=== PATIENT | male | born 1980 ===

== ENCOUNTER 2016-09-20 18:21 | Inpatient (IN) | payer MEDICAID ==
--- NOTE | 2016-09-20 18:37 | ED PDOC ---
HPI: Psych/Substance Abuse Time Seen by Provider: 09/20/16 18:35 Chief Complaint (Nursing): Substance Abuse Chief Complaint (Provider): etoh, ? substance abuse History Per: Patient Past Medical History Vital Signs: Last Vital Signs Temp 97.8 F 09/20/16 18:26 Pulse 114 H 09/20/16 18:26 Resp 18 09/20/16 18:26 BP Pulse Ox 98 09/20/16 18:26 - Allergies Allergies/Adverse Reactions: Allergies Allergy/AdvReac Type Severity Reaction Status Date / Time Unobtainable Allergy Verified 09/20/16 18:24 - ECG O2 Sat by Pulse Oximetry: 98
[2016-09-20] MEDS ORDERED: Sodium Chloride 0.9% 1,000 ML IV STA (18:47)
--- NOTE | 2016-09-20 18:50 | ED PDOC ---
HPI: Psych/Substance Abuse Time Seen by Provider: 09/20/16 18:35 Chief Complaint (Nursing): Substance Abuse Chief Complaint (Provider): AMS ED Caveat: Intoxicated History Per: EMS, Family History/Exam Limitations: clinical condition, intoxication Onset/Duration Of Symptoms: Unknown Current Symptoms Are (Timing): Still Present Suicide/Self Injury Attempted (Context): Ingestion Modifying Factor(s): Alcohol Severity: Severe Associated Symptoms: Agitation Involuntary Hold By: Emergency Physician Additional Complaint(s): 36yo male arrives w EMS per report intoxicated and combative en-route. Mother later arrived states he fell 2x yesterday, has been drinking alcohol, she's unsure if he coningested any medications in attempt to overdose. He was seen at [place] [facility] last week back pain and found to have elevated LFTs?, per mother was discharged, history limited. In ED arrived awake but appearing intoxicated, no gross trauma, slurred speech and not able to provide further history. Home medications also brought to ED, include amytriptyline, duloxetine , vit B6, alprazolam. Past Medical History Reviewed: Historical Data, Nursing Documentation, Vital Signs, Unable To Obtain Vital Signs: Last Vital Signs Temp 97.8 F 09/20/16 18:26 Pulse 114 H 09/20/16 18:26 Resp 18 09/20/16 18:26 BP Pulse Ox 98 09/20/16 18:26 - Surgical History Other surgeries: unknown - Family History Family History: States: Unknown Family Hx - Living Arrangements Living Arrangements: With Family - Social History Current smoker - smoking cessation education provided: No Alcohol: > 2 Drinks/Day Drugs: Other (uknown) - Allergies Allergies/Adverse Reactions: Allergies Allergy/AdvReac Type Severity Reaction Status Date / Time Unobtainable Allergy Verified 09/20/16 18:24 Review of Systems Review Of Systems: ROS cannot be obtained secondary to pt's inabilty to answer questions. Physical Exam - Reviewed Nursing Documentation Reviewed: Yes Vital Signs Reviewed: Yes - Physical Exam Appears: Positive for: Non-toxic (+ AMS, slurred speech, no gross trauma) Head Exam: Positive for: ATRAUMATIC, NORMAL INSPECTION, NORMOCEPHALIC Skin: Positive for: Normal Color, Warm, DRY Eye Exam: Positive for: Normal appearance, EOMI, PERRL (3mm b/l sluggish) ENT: Positive for: Normal ENT Inspection Neck: Positive for: Normal, Painless ROM, Trachea Midline. Negative for: Pain On Movement Of Neck Cardiovascular/Chest: Positive for: Regular Rate, Rhythm Respiratory: Positive for: Normal Breath Sounds. Negative for: Respiratory Distress Pulses-Radial (L): 2+ Pulses-Radial (R): 2+ Gastrointestinal/Abdominal: Positive for: Bowel Sounds, Soft, Other (obese). Negative for: Tenderness Back: Positive for: Normal Inspection Extremity: Positive for: Normal ROM, Other (chronic appearing changes skin to hands). Negative for: Deformity Neurologic/Psych: Positive for: Alert, Other (moves all ext with equal tone, altered) - ECG O2 Sat by Pulse Oximetry: 98 Medical Decision Making Medical Decision Making: Workup initiated for AMS with potential for ingestion or head injury (fall yesterday per mother). Pt required restrains for relief of agitation and patient/staff safety on arrival. Disposition - Clinical Impression Clinical Impression: Altered mental status - Patient ED Disposition Is Patient to be Admitted: Transfer of Care - Disposition Disposition: Transfer of Care Disposition Time: 18:53 Condition: GUARDED Patient Signed Over To: Yariel Tinoco Handoff Comments: pending all workup and dispo - POA Present On Arrival: Falls Or Trauma
[2016-09-20 19:17] LABS: BASO # 0.1 K/uL (0.0-0.2); BASO % 0.9 % (0.0-2.0); EOS # 0.1 K/uL (0.0-0.7); EOS % 0.6 % (0.0-4.0); HEMATOCRIT 50.1 % (35.0-51.0); LYMPH # 4.4 K/uL (1.0-4.3); LYMPH % 39.7 % (20.0-40.0); MEAN CELL VOLUME 90.5 fl (80.0-94.0); MEAN CORPUSCULAR HEMOGLOBIN 30.7 pg (27.0-31.0); MONO # 0.8 K/uL (0.0-0.8); MONO % 7.1 % (0.0-10.0); NEUT # 5.8 K/uL (1.8-7.0); NEUT % 51.7 % (50.0-75.0); NRBC % 0.6 % (0.0-0.0); RED CELL DISTRIBUTION WIDTH 14.9 % (11.5-14.5); WHITE BLOOD COUNT 11.2 K/uL (4.8-10.8)
[2016-09-20 19:29] LABS: ALKALINE PHOSPHATASE 207 U/L (38-126); ALT/SGPT 140 U/L (21-72); AST/SGOT 235 U/L (17-59); BILIRUBIN,TOTAL 1.5 mg/dl (0.2-1.3); BLOOD UREA NITROGEN 5 mg/dl (9-20); CALCIUM 8.6 mg/dL (8.4-10.2); CARBON DIOXIDE 20 mmol/L (22-30); CHLORIDE 108 mmol/L (98-107); GFR AFRICAN-AMERICAN > 60; GLUCOSE,RANDOM 116 mg/dL (75-110); POTASSIUM 3.6 MMOL/L (3.6-5.0); SODIUM 155 mmol/l (132-148); TOTAL PROTEIN 9.1 G/DL (6.3-8.2)
--- NOTE | 2016-09-20 19:36 | ED PDOC ---
- Laboratory Results Result Diagrams: 09/20/16 18:50 09/20/16 18:50 - ECG O2 Sat by Pulse Oximetry: 98 Medical Decision Making Medical Decision Makin:00 Patient endorsed over to me by Forest Mclain III, DO, pending remainder of ED workup, reevaluation and final disposition. Patient will be placed within ED Observation secondary to his acutely intoxicated state. Pending clinical sobriety and results of ED workup. Patient s/o to Dr. Morales at 0700 pending sobriety and crisis eval. Scribe Attestation: Documented by Katina De La Paz, acting as a scribe for Yariel Tinoco MD. Provider Scribe Attestation: All medical record entries made by the Scribe were at my direction and personally dictated by me. I have reviewed the chart and agree that the record accurately reflects my personal performance of the history, physical exam, medical decision making, and the department course for this patient. I have also personally directed, reviewed, and agree with the discharge instructions and disposition. Disposition - Clinical Impression Clinical Impression: Alcoholic intoxication - POA Present On Arrival: None - Disposition Disposition: Transfer of Care Disposition Time: 21:06 Condition: GUARDED Patient Signed Over To: Karol Morales Handoff Comments: pending sobriety and crisis eval ED OBSERVATION Date of observation admission: 09/20/16 Time of observation admission: 19:00 - Observation admission statement Patient is being placed in observation because:: Secondary to acute alcohol intoxication. - Goals of Observation Goals of observation are:: Clinical sobriety, results of ED workup, reevaluation and final disposition. - Progress Note Progress Note: 09/20/16 21:08 Patient is resting comfortably in ED. No apparent distress, easily arousable.
[2016-09-20 19:41] LABS: ALCOHOL SERUM 479 mg/dl (0-10)
[2016-09-20 21:05] LABS: RBC URINE < 1 /hpf (0-3); URINE BILIRUBIN NEGATIVE (NEGATIVE); URINE BLOOD NEGATIVE (NEGATIVE); URINE COLOR YELLOW (YELLOW); URINE GLUCOSE (UA) NEG (Normal); URINE KETONE TRACE mg/dL (NEGATIVE); URINE LEUKOCYTE ESTERASE NEG Leu/uL (Negative); URINE PROTEIN 100 mg/dL (NEGATIVE); URINE UROBILINOGEN 0.2-1.0 mg/dL (0.2-1.0); WBC URINE < 1 /hpf (0-5)
--- NOTE | 2016-09-21 07:13 | ED PDOC ---
- Laboratory Results Result Diagrams: 09/22/16 07:29 09/22/16 07:29 - ECG O2 Sat by Pulse Oximetry: 98 Medical Decision Making Medical Decision Making: Time: 699 Patient signed out by Dr. Tinoco pending sobriety and crisis evaluation Time: 844 Patient possibly to be screen by [facility] [place] per industrial services worker Time: 1014 Patient to be admitted to [facility] for unspecified alcohol use disorder by Dr.Micelli Fitch Attestation: Documented by Venecia Figueroa acting as a scribe for Karol Morales MD MD Scribe Attestation: All medical record entries made by the Scribe were at my direction and personally dictated by me. I have reviewed the chart and agree that the record accurately reflects my personal performance of the history, physical exam, medical decision making, and the department course for this patient. I have also personally directed, reviewed, and agree with the discharge instructions and disposition. Disposition Counseled Patient/Family Regarding: Studies Performed, Diagnosis - Clinical Impression Clinical Impression: Alcohol intoxication - POA Present On Arrival: None - Disposition Disposition: Admitted as In-Patient Disposition Time: 10:00 Condition: STABLE
--- NOTE | 2016-09-21 09:17 | CT ---
PROCEDURE: CT HEAD WITHOUT CONTRAST. HISTORY: AMS COMPARISON: None available. TECHNIQUE: Axial computed tomography images were obtained through the head/brain without intravenous contrast. Radiation dose: Total exam DLP = 1473.60 mGy-cm. This CT exam was performed using one or more of the following dose reduction techniques: Automated exposure control, adjustment of the mA and/or kV according to patient size, and/or use of iterative reconstruction technique. FINDINGS: HEMORRHAGE: No intracranial hemorrhage. BRAIN: There is no mass, mass effect or abnormal extra-axial fluid collection. There is no territorial infarction. VENTRICLES: There is mild global parenchymal volume loss and proportionate enlargement of the ventricles and cortical sulci. CALVARIUM: The skull base and calvarium are normal. PARANASAL SINUSES: There is chronic left maxillary sinusitis. The remaining included paranasal sinuses are predominantly clear. MASTOID AIR CELLS: Predominantly clear. OTHER FINDINGS: None. IMPRESSION: No acute intracranial abnormality. Mild global parenchymal volume loss, advanced for the patient's age. Chronic left maxillary sinusitis. A preliminary report was provided by [employer].
[2016-09-21] MEDS ORDERED: DiphenhydrAMINE 50 mg/ml Inj IM PRN (13:19)
[2016-09-21] MEDS ORDERED: Alum-Mag Hydrox-Simethicone Susp (30 mL) PO PRN (13:19)
[2016-09-21] MEDS ORDERED: Magnesium Hydroxide Susp 30 ml UD PO PRN (13:19)
--- NOTE | 2016-09-21 18:30 | CARD ---
APPROVED REPORT EKG Measurement Heart [id number] <Conclusion> Sinus tachycardia T wave abnormality, consider inferior ischemia Abnormal ECG
--- NOTE | 2016-09-21 21:39 | PCM.PSYCH ---
Initial Psychiatric Evaluation - Initial Psychiatric Evaluation Chief Complaint (in patient's own words): came to emergency room i was found on floor i passed out Patient's Reaction to Hospitalization: verbally agreeable to remain Current Medications: Active Medications Generic Name Dose Route Start Last Admin Trade Name Freq PRN Reason Stop Dose Admin Acetaminophen 650 mg 09/21/16 13:19 Tylenol 325mg Tab PO Q4 PRN Pain, moderate (4-7) Al Hydrox/Mg Hydrox/Simethicone 30 ml 09/21/16 13:19 Maalox Plus 30 Ml PO Q4 PRN Dyspepsia Diphenhydramine HCl 50 mg 09/21/16 13:19 Benadryl PO Q6 PRN Extrapyramidal Symptoms Diphenhydramine HCl 50 mg 09/21/16 13:19 Benadryl IM Q6 PRN Extrapyramidal S/S Unable PO Folic Acid 1 mg 09/22/16 09:00 Folic Acid PO DAILY DIANA Gabapentin 600 mg 09/21/16 17:00 09/21/16 16:13 Neurontin PO 600 mg TID DIANA Administration Haloperidol 5 mg 09/21/16 13:19 Haldol PO Q4 PRN Agitation Haloperidol Lactate 5 mg 09/21/16 13:19 Haldol IM Q4 PRN Agitation, Unable to Take PO Influenza Virus Vaccine 0.5 ml 09/22/16 13:19 Afluria (Pf)(5yr & Older) IM 09/22/16 13:20 .ONCE ONE Lorazepam 2 mg 09/21/16 13:19 Ativan PO Q4 PRN Anxiety/Agitation Lorazepam 2 mg 09/21/16 13:19 Ativan IM Q4 PRN Anxiety/Agitation,Unable PO Lorazepam 1 mg 09/21/16 17:00 09/21/16 16:12 Ativan PO 1 mg BID DIANA Administration Lorazepam 1 mg 09/21/16 22:00 09/21/16 21:09 Ativan PO 1 mg HS DIANA Administration Magnesium Hydroxide 30 ml 09/21/16 13:19 Milk Of Magnesia PO HS PRN Constipation Multivitamins/Minerals 1 tab 09/22/16 09:00 Therapeutic-M Tab PO DAILY DIANA Pneumococcal Polyvalent Vaccine 0.5 ml 09/22/16 13:19 Pneumovax 23 Vaccine IM 09/22/16 13:20 .ONCE ONE Thiamine HCl 100 mg 09/22/16 09:00 Vitamin B1 Tab PO DAILY DIANA Past Psychiatric History - Past Psychiatric History Prior Professional Help: previous tx detox etoh At [facility]: varied History of Abuse: etoh History of ETOH/Drug Use: "long time" History of Family Illness: defers Pertinent Medical Hx (Current Medical&Sleep Prob, Allergies): Allergies Allergy/AdvReac Type Severity Reaction Status Date / Time No Known Allergies Allergy Verified 09/21/16 16:33 DULoxetine [Cymbalta] 30 mg PO DAILY 09/21/16 Famotidine [Pepcid] 20 mg PO HS 09/21/16 Folic Acid [Folic Acid] 1 mg PO DAILY 09/21/16 Gabapentin [Neurontin] 600 mg PO TID 09/21/16 LORazepam [Ativan] 1 mg PO BID 09/21/16 Magnesium Oxide [Magox 400] 400 mg PO BID 09/21/16 Metoprolol Succinate [Metoprolol Succinate] 25 mg PO BID 09/21/16 Multivitamin [Multi-Vitamin Daily] 1 tab PO DAILY 09/21/16 Thiamine [Vitamin B1 Tab] 100 mg PO DAILY 09/21/16 Review of Systems - Psychiatric Psychiatric: Anhedonia, Irritability, Mood Swings Additional comments: etoh Mental Status Examination - Personal Presentation Personal Presentation: Looks older than stated age - Affect Affect: Constricted - Motor Activity Motor Activity: Psychomotor Retardation - Reliability in Providing Information Reliability in Providing Information: Fair - Speech Speech: Organized - Mood Mood: Depressed - Formal Thought Process Formal Thought Process: No Impairment - Cognitive Functions Orientation: Person, Place, Situation, Time Sensorium: Alert Judgement: Intact, as evidence by: Other Memory: Remote impaired as evidenced by: Other - Risk Risk: Withdrawal - Limitations Additional comments: previous hx of relapse DSM 5 DX - DSM 5 DSM 5 Diagnosis: substance induced mood disorder substance use: etoh - Recommended/Plan of Treatment Treatment Recommendations and Plan of Treatment: admission per attending md vital signs and clinical assessment per protocol and per status adjust medications per clinical status hospitalist consult physical therapy consult discharge planning in progress Projected ELOS: 5-7 days Prognosis: guarded Discharge Plan and Discharge Criteria: free of signs and symptoms of withdrawal stabilization of mood while not under influence of etoh - Smoking Cessation Smoking Cessation Initiated: No Reason for not providing: deferred
[2016-09-22 08:16] LABS: ALKALINE PHOSPHATASE 167 U/L (38-126); ALT/SGPT 98 U/L (21-72); AMYLASE 95 U/L (30-110); AST/SGOT 146 U/L (17-59); BILIRUBIN,TOTAL 2.2 mg/dl (0.2-1.3); BLOOD UREA NITROGEN 10 mg/dl (9-20); CALCIUM 9.1 mg/dL (8.4-10.2); CARBON DIOXIDE 29 mmol/L (22-30); CHLORIDE 100 mmol/L (98-107); CHOLESTEROL 199 mg/dL (0-199); GFR AFRICAN-AMERICAN > 60; GLUCOSE,RANDOM 107 mg/dL (75-110); LIPASE 93 U/L (23-300); POTASSIUM 4.1 MMOL/L (3.6-5.0); SODIUM 143 mmol/l (132-148); TOTAL PROTEIN 8.1 G/DL (6.3-8.2)
[2016-09-22] MEDS: Multivitamin With Minerals Tab PO SCH (09:01)
[2016-09-22 09:49] LABS: THYROID STIMULATING HORMONE 1.07 mIU/ML (0.46-4.68)
[2016-09-22 09:57] LABS: BASO % 0.6 % (0.0-2.0); EOS # 0.1 K/uL (0.0-0.7); HEMATOCRIT 42.7 % (35.0-51.0); LYMPH # 1.1 K/uL (1.0-4.3); LYMPH % 20.1 % (20.0-40.0); MEAN CORPUSCULAR HEMOGLOBIN 31.4 pg (27.0-31.0); MEAN CORPUSCULAR HGB CONC 35.3 g/dL (33.0-37.0); MEAN PLATELET VOLUME 8.2 fl (7.2-11.7); MONO # 0.3 K/uL (0.0-0.8); MONO % 5.5 % (0.0-10.0); NEUT # 4.1 K/uL (1.8-7.0); NEUT % 71.8 % (50.0-75.0); NRBC % 0.2 % (0.0-0.0); RED CELL DISTRIBUTION WIDTH 14.5 % (11.5-14.5); WHITE BLOOD COUNT 5.7 K/uL (4.8-10.8)
[2016-09-22] MEDS ORDERED: Influenza Vaccine(5yr & older) 0.5 ML/45 MCG IM ONE (13:19)
[2016-09-22] MEDS ORDERED: Pneumococcal 23-Valent Vaccine IM ONE (13:19)
--- NOTE | 2016-09-22 16:29 | PCM.PYCHPN ---
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, today is noted pt complained to staff of sweating, feeling like he was shaking, pt is on etoh withdrawal protocol,has reportedly been adherent with medications and treatment Problems Identified/Issues Discussed: alteration in mood alteration in coping alteration in physiologic control :etoh withdrawal Medical Problems: per chart Diagnostic Results: per psychiatry per medicine per nursing per social work per recreational therapy Medical Record Reviewed: Yes Mental Status Examination - Cognitive Function Orientation: Person, Place, Situation, Time Attention: WNL Concentration: WNL Association: [facility] Fund of Knowledge: [facility] Decription of patient's judgement and insights: impaired - Mood Mood: Depressed - Affect Affect: Constricted - Speech Speech: Soft - Formal Thought Process Formal Thought Process: No Impairment - Homicidal Ideation Homicidal Ideation: No Goal/Treatment Plan - Goal/Treatment Plan Need for Continued Stay: Remain at risks for inpatient hospitalization, Discharge may exacerbated symptoms Progress Toward Problem(s) and Goals/Treatment Plan: admission per attending md vital signs and clinical assessment per protocol and per status adjust medications per clinical status discharge planning in progress pt reports that prior to drinking etoh experienced peripheral neuropathy denies having diabetes past hx of non barrier sex-obtain hiv 1/2 , hep a ab, hep b core ab, surface ab, surface ag, hep c ab, lymes enrrique/western blot Estimated Date of D/C: 09/27/16 - Smoking Cessation Smoking Cessation Initiated: No Reason for not providing: defers
--- NOTE | 2016-09-22 20:10 | CP.PCM.CON ---
History of Present Illness - History of Present Illness History of Present Illness: Hospitalist Consult H&P (Patient was seen and examined at 3 PM 09/22/16 Psychiatry [id number]) 36 year old male who was admitted to in-patient Psychiatry Unit on 09/21/16 for Alcohol Abuse. He was found intoxicated in the ER. Currently upon FULL ROS NO chest pain, NO palpitations, NO SOB/Cough/Wheezing, NO dysphagia/odynophagia, NO abdominal pain, NO n/v/d/c, NO black/bloody stools , NO burning/pain with urination, NO headaches, NO new changes in vision/eye pain, NO new changes in hearing/ear pain, NO edema. (+) Paresthesias (numbness and tenderness of the bilateral feet/toes of which he as a history of and is nothing new). PMHx: Peripheral Neuropathy (numbness and tenderness of the bilateral feet/toes and is being followed by Neurology Dr. Ochoa at [facility] and was placed on Gabapentin and last appointment 3 weeks ago), Alcohol Abuse PSHx: Right Arm Fracture and Right Hand Fracture (both with metal hardware) ALL: NKDA, NO known food allergies Medication at home: Gabapentin 600 mg PO 3x/day, Folic Acid 1 mg PO 1x/day, MagOxide, Thiamine, MVI Social Hx: Lives with family, Not working, NO tobacco, (+) Alcohol (1/2 Liter of [place] a day), NO illicit drugs Family Hx: Mom (HTN), Dad (Alcoholism), Sister (Anxiety, Bone Tumor Forehead), Brother (Healthy) Review of Systems - Review of Systems Review of Systems: PLEASE SEE HPI ABOVE Past Patient History - Past Medical History & Family History Pertinent Family History: PLEASE SEE HPI - Past Social History Alcohol: > 2 Drinks/Day Drugs: Other (uknown) - CARDIAC Hx Cardiac Disorders: No Hx Hypertension: Yes - PULMONARY Hx Respiratory Disorders: No Hx Tuberculosis: No - NEUROLOGICAL Hx Neurological Disorder: No HX Cerebrovascular Accident: No Hx Seizures: No - HEENT Hx HEENT Problems: No - RENAL Hx Chronic Kidney Disease: No - ENDOCRINE/METABOLIC Hx Endocrine Disorders: No - HEMATOLOGICAL/ONCOLOGICAL Hx Blood Disorders: No Hx Cancer: No Hx Human Immunodeficiency Virus (HIV): No - INTEGUMENTARY Hx Dermatological Problems: No - MUSCULOSKELETAL/RHEUMATOLOGICAL Hx Musculoskeletal Disorders: No Hx Fractures: Yes Hx Unsteady Gait: Yes Other/Comment: peripheral neuropathy - GASTROINTESTINAL Hx Gastrointestinal Disorders: No - GENITOURINARY/GYNECOLOGICAL Hx Genitourinary Disorders: No Hx Sexually Transmitted Disorders: No - PSYCHIATRIC Hx Substance Use: No - SURGICAL HISTORY Hx Surgeries: No - ANESTHESIA Hx Anesthesia: No Meds Allergies/Adverse Reactions: Allergies Allergy/AdvReac Type Severity Reaction Status Date / Time No Known Allergies Allergy Verified 09/21/16 16:33 - Medications Medications: Current Medications Acetaminophen (Tylenol 325mg Tab) 650 mg PO Q4 PRN PRN Reason: Pain, moderate (4-7) Al Hydrox/Mg Hydrox/Simethicone (Maalox Plus 30 Ml) 30 ml PO Q4 PRN PRN Reason: Dyspepsia Diphenhydramine HCl (Benadryl) 50 mg PO Q6 PRN PRN Reason: Extrapyramidal Symptoms Diphenhydramine HCl (Benadryl) 50 mg IM Q6 PRN PRN Reason: Extrapyramidal S/S Unable PO Duloxetine HCl (Cymbalta) 20 mg PO DAILY [facility] Folic Acid (Folic Acid) 1 mg PO DAILY [facility] Last Admin: 09/22/16 09:02 Dose: 1 mg Gabapentin (Neurontin) 600 mg PO TID [facility] Last Admin: 09/22/16 17:08 Dose: 600 mg Haloperidol (Haldol) 5 mg PO Q4 PRN PRN Reason: Agitation Haloperidol Lactate (Haldol) 5 mg IM Q4 PRN PRN Reason: Agitation, Unable to Take PO Lorazepam (Ativan) 2 mg PO Q4 PRN PRN Reason: Anxiety/Agitation Last Admin: 09/22/16 04:08 Dose: 2 mg Lorazepam (Ativan) 2 mg IM Q4 PRN PRN Reason: Anxiety/Agitation,Unable PO Lorazepam (Ativan) 1 mg PO BID [facility] Last Admin: 09/22/16 17:08 Dose: 1 mg Lorazepam (Ativan) 1 mg PO HS [facility] Last Admin: 09/21/16 21:09 Dose: 1 mg Magnesium Hydroxide (Milk Of Magnesia) 30 ml PO HS PRN PRN Reason: Constipation Multivitamins/Minerals (Therapeutic-M Tab) 1 tab PO DAILY [facility] Last Admin: 09/22/16 09:01 Dose: 1 tab Thiamine HCl (Vitamin B1 Tab) 100 mg PO DAILY [facility] Last Admin: 09/22/16 09:02 Dose: 100 mg Physical Exam - Constitutional Appears: Non-toxic, No Acute Distress - Head Exam Head Exam: ATRAUMATIC, NORMAL INSPECTION, NORMOCEPHALIC - Eye Exam Eye Exam: EOMI, Normal appearance, PERRL Pupil Exam: NORMAL ACCOMODATION, PERRL - ENT Exam ENT Exam: Mucous Membranes Moist, Normal Exam, Normal External Ear Exam, Normal Oropharynx - Neck Exam Neck exam: Positive for: Normal Inspection Additional comments: NO LYMPHADENOPATHY NO THYROMEGALY - Respiratory Exam Respiratory Exam: Clear to Auscultation Bilateral, NORMAL BREATHING PATTERN Additional comments: CTA B/L - Cardiovascular Exam Cardiovascular Exam: REGULAR RHYTHM, +S1, +S2 Additional comments: NO M/R/G - GI/Abdominal Exam Additional comments: BS X 4, NT, CENTRAL OBESITY, LIVER AND SPLEEN COULD NOT BE PALPATED, NO GUARDING /REBOUND TENDERNESS, SOFT - Extremities Exam Extremities exam: Positive for: normal capillary refill, normal inspection Additional comments: NO EDEMA - Neurological Exam Neurological exam: Alert, CN II-XII Intact, Oriented x3 Results - Vital Signs Recent Vital Signs: Last Vital Signs Temp 97.9 F 09/22/16 16:23 Pulse 90 09/22/16 16:23 Resp 20 09/22/16 16:23 BP 142/90 09/22/16 16:23 Pulse Ox 95 09/22/16 14:43 - Labs Result Diagrams: 09/22/16 07:29 09/22/16 07:29 Labs: Laboratory Results - last 24 hr 09/22/16 09/22/16 06:10 07:29 WBC 5.7 RBC 4.79 Hgb 15.1 Hct 42.7 MCV 89.0 MCH 31.4 H MCHC 35.3 RDW 14.5 Plt Count 114 L D MPV 8.2 Neut % (Auto) 71.8 Lymph % (Auto) 20.1 [place] % (Auto) 5.5 Eos % (Auto) 2.0 Baso % (Auto) 0.6 Neut # 4.1 Lymph # 1.1 [place] # 0.3 Eos # 0.1 Baso # 0.0 Sodium 143 Potassium 4.1 Chloride 100 Carbon Dioxide 29 Anion Gap 18 BUN 10 Creatinine 0.8 Est GFR ( Amer) > 60 Est GFR (Non-Af Amer) > 60 Random Glucose 107 Hemoglobin A1c 5.7 Calcium 9.1 Total Bilirubin 2.2 H AST 146 H D ALT 98 H D Alkaline Phosphatase 167 H Ammonia 33 Total Protein 8.1 Albumin 4.0 Globulin 4.0 H Albumin/Globulin Ratio 1.0 Triglycerides 128 Cholesterol 199 LDL Cholesterol Direct 129 HDL Cholesterol 44 Amylase 95 Lipase 93 Free T4 1.25 TSH 3rd Generation 1.07 RPR Nonreactive Assessment & Plan (1) Substance induced mood disorder Assessment and Plan: Treatment as per Psychiatry Status: Acute (2) Elevated LFTs Assessment and Plan: Likely related to the history of heavy alcohol abuse Trending down Monitor CMP Status: Acute (3) Chronic left maxillary sinusitis Assessment and Plan: As per CT Head Will need to follow up with ENT as an outpatient Currently no complaints concerning this issue Status: Chronic (4) Peripheral neuropathy Assessment and Plan: Involving the bilateral feet/toes Being followed by Neurologist Dr. Ochoa at [facility] Continue Gabapentin 600 mg PO 3x/day Status: Chronic
[2016-09-23 00:31] VITALS: O2SAT 98
[2016-09-23 07:49] LABS: ALB/GLOB RATIO 1.1 (1.0-2.1); ALKALINE PHOSPHATASE 191 U/L (38-126); ALT/SGPT 102 U/L (21-72); AST/SGOT 149 U/L (17-59); BILIRUBIN,TOTAL 1.8 mg/dl (0.2-1.3); BLOOD UREA NITROGEN 9 mg/dl (9-20); CARBON DIOXIDE 25 mmol/L (22-30); CHLORIDE 103 mmol/L (98-107); GFR AFRICAN-AMERICAN > 60; GLUCOSE,RANDOM 118 mg/dL (75-110); POTASSIUM 3.9 MMOL/L (3.6-5.0); SODIUM 142 mmol/l (132-148); TOTAL PROTEIN 7.7 G/DL (6.3-8.2)
[2016-09-23] MEDS: Multivitamin With Minerals Tab PO SCH (08:16)
[2016-09-23 09:10] LABS: LYME DISEASE SCREEN <0.90 index (())
--- NOTE | 2016-09-23 19:40 | PCM.PYCHPN ---
Psychiatric Progress Note - Psychiatric Progress Note Patient seen today, length of contact: chart reviewed case discussed with team Patient Chief Complaint: pt seen laying in bed, easily arrousable to verbal stimulus, reports mood is less depressed, does not feel any symptoms of etoh withdrawal. staff report pt has been seen in unit, pt was seen by social media project manager today related to possible follow up plan, pt reports that he will be able to return to family's home upon discharge and wishes to follow up with psychotherapy/psych. denies any side effects current medication. reports pain is less with cymbalta (20 mg was started yesterday because elevated lfts). Problems Identified/Issues Discussed: alteration in mood alteration in coping alteration in physiologic control :etoh withdrawal not reported/remission, pt seen by dr hatfield-lft's somewhat improved Medical Problems: per chart Diagnostic Results: per psychiatry per medicine per nursing per social work per recreational therapy DSM 5 Symptoms Update: substance use: etoh newly in remission substance induced mood disorder Medical Record Reviewed: Yes Consults ordered or reviewed: dr hatfield Mental Status Examination - Cognitive Function Orientation: Person, Place, Situation, Time Attention: WNL Concentration: WNL Association: WNL Fund of Knowledge: WN Decription of patient's judgement and insights: improving - Mood Mood: Depressed - Affect Affect: Constricted - Speech Speech: Soft - Formal Thought Process Formal Thought Process: No Impairment - Suicidal Ideation Suicidal Ideation: No - Homicidal Ideation Homicidal Ideation: No Goal/Treatment Plan - Goal/Treatment Plan Need for Continued Stay: Remain at risks for inpatient hospitalization, Discharge may exacerbated symptoms Progress Toward Problem(s) and Goals/Treatment Plan: admission per attending md vital signs and clinical assessment per protocol and per status adjust medications per clinical status discharge planning in progress repeat cmp am assess lfts pt receiving cymbalta 20mg po day Hepatitis panel negative Lymes screening negative Estimated Date of D/C: 09/27/16 - Smoking Cessation Smoking Cessation Initiated: No Reason for not providing: defers
[2016-09-24 04:38] VITALS: RESP 18
[2016-09-24 06:02] VITALS: BP 150/84; PULSE 93; TEMP 98.1
[2016-09-24 08:15] LABS: BASO % 0.5 % (0.0-2.0); EOS # 0.2 K/uL (0.0-0.7); EOS % 2.1 % (0.0-4.0); HEMATOCRIT 45.3 % (35.0-51.0); LYMPH # 1.3 K/uL (1.0-4.3); LYMPH % 16.9 % (20.0-40.0); MEAN CELL VOLUME 90.8 fl (80.0-94.0); MEAN CORPUSCULAR HEMOGLOBIN 30.8 pg (27.0-31.0); MEAN CORPUSCULAR HGB CONC 33.9 g/dL (33.0-37.0); MEAN PLATELET VOLUME 8.6 fl (7.2-11.7); MONO # 0.4 K/uL (0.0-0.8); MONO % 4.8 % (0.0-10.0); NEUT % 75.7 % (50.0-75.0); NRBC % 0.2 % (0.0-0.0); RED CELL DISTRIBUTION WIDTH 14.6 % (11.5-14.5); WHITE BLOOD COUNT 7.9 K/uL (4.8-10.8)
[2016-09-24 08:20] LABS: ALB/GLOB RATIO 1.1 (1.0-2.1); ALKALINE PHOSPHATASE 192 U/L (38-126); ALT/SGPT 118 U/L (21-72); AST/SGOT 144 U/L (17-59); BLOOD UREA NITROGEN 9 mg/dl (9-20); CALCIUM 9.2 mg/dL (8.4-10.2); CARBON DIOXIDE 26 mmol/L (22-30); CHLORIDE 104 mmol/L (98-107); GFR AFRICAN-AMERICAN > 60; GLUCOSE,RANDOM 109 mg/dL (75-110); POTASSIUM 4.2 MMOL/L (3.6-5.0); SODIUM 144 mmol/l (132-148); TOTAL PROTEIN 8.5 G/DL (6.3-8.2)
[2016-09-24] MEDS: Multivitamin With Minerals Tab PO SCH (09:19)
--- NOTE | 2016-09-24 11:56 | PCM.PYCHDC ---
Mental Status Examination - Mental Status Examination Orientation: Person, Place, Situation, Time Memory: Intact Mood: Neutral Affect: Broad Speech: Appropriate Attention: WNL Association: WNL Fund of Knowledge: WNL Formal Thought Process: No Impairment Description of patient's judgement and insight: fair Psychotic Thoughts and Behaviors: denies a/v hallucinations Suicidal Ideation: No Current Homicidal Ideation?: No Plan: denies any suicidal or homicidal thoughts Discharge Summary - Discharge Note Reason for Hospitalization: see admission assessment for details, pt using alcohol Psychiatric History (includes Medical, Family, Personal Hx): history of alcohol dependence Laboratory Data: Abnormal Lab Results 09/22/16 09/24/16 18:30 06:30 WBC 7.9 RBC 5.00 Hgb 15.4 Hct 45.3 MCV 90.8 MCH 30.8 MCHC 33.9 RDW 14.6 H Plt Count 107 L MPV 8.6 Neut % (Auto) 75.7 H Lymph % (Auto) 16.9 L [place] % (Auto) 4.8 Eos % (Auto) 2.1 Baso % (Auto) 0.5 Neut # 6.0 Lymph # 1.3 [place] # 0.4 Eos # 0.2 Baso # 0.0 Sodium 144 Potassium 4.2 Chloride 104 Carbon Dioxide 26 Anion Gap 18 BUN 9 Creatinine 0.7 L Est GFR ( Amer) > 60 Est GFR (Non-Af Amer) > 60 Random Glucose 109 Calcium 9.2 Total Bilirubin 2.0 H AST 144 H ALT 118 H Alkaline Phosphatase 192 H Total Protein 8.5 H Albumin 4.4 Globulin 4.1 H Albumin/Globulin Ratio 1.1 Hep Bs Antibody Negative Hep B Core IgM Ab Negative Hepatitis C Antibody Negative HIV 1&2 Antibody Screen Negative Consultations:: List each consultation separately and include: 1. Reason for request. 2. Findings. 3. Follow-up Consultations: see by the hospitalist Summary of Hospital Course include:: 1. Description of specific treatment plan utilized for patients during their course of treatmen. 2. Summarize the time- course for resolution of acute symptoms and/or regressed behaviors. 3. Describe issues identified and worked on during hospitalization. 4. Describe medication utilized. 5. Describe medical problems identified and treated. 6. Reassessment of suicide risk Summary of Hospital Course: pt was admitted to [facility] and oriented to the unit. placed on routine safety protocols. started on his home medications. on ativan for etoh detox. this was stopped prior to discharge and no evidence of withdrawal complications. pt had signed a 48 hour notice and family was supportive of his discharge. he was goal directed and future oriented at the time of discharge. - Final Diagnosis (DSM 5) Condition upon Discharge: STABLE DSM 5: alcohol dependence depression Disposition: HOME/ ROUTINE Follow-up Treatment Plan: follow up with aftercare as directed take medications as prescribed do not use alcohol, tobacco or other illicit substances call 911 if any suicidal or homicidal thoughts no prescriptions provided as pt has meds at home and no changes made - Smoking Cessation Smoking Cessation Medication prescribed: No Reason for not providing: declines - Antipsychotic Medications Pt discharged on 2 or more routine antipsychotic medications: No
== END 2016-09-24 12:31 | disposition home or self-care (01) | DRG 751 ==
LOC: H.ER 18:21 → H.EROBSV 21:06 → UNDOADMOB 21:06 → INTOOBSV 09-21 10:31 → EDBD 09-21 10:31 → OBSVTOIN 09-21 10:31 → H.EROBSV 09-21 12:01 → H.STEP 09-21 12:01 → OBSVTOIN 09-21 13:19 → H.STEP 09-21 13:19
PROVIDERS: ADMIT Psychiatry & Neurology Psychiatry; ATTEND Psychiatry & Neurology Psychiatry
PROC: GZHZZZZ Group Psychotherapy (ICD-10-PCS; principal; 2016-09-21)
PROC: GZ58ZZZ Individual Psychotherapy, Cognitive-Behavioral (ICD-10-PCS; 2016-09-21)
DX: F10.24 Alcohol dependence with alcohol-induced mood disorder (principal); F10.239 Alcohol dependence with withdrawal, unspecified; F32.9 Major depressive disorder, single episode, unspecified; G62.9 Polyneuropathy, unspecified; Y90.8 Blood alcohol level of 240 mg/100 ml or more; J32.0 Chronic maxillary sinusitis; Z81.1 Family history of alcohol abuse and dependence